=== PATIENT | female | born 1970 ===

== ENCOUNTER 2016-12-25 15:07 | Outpatient (CLI) | payer OTHER | END 2016-12-25 15:08 | disposition home or self-care (01) | LOC: LABHHL 15:07 | PROVIDERS: ATTEND Surgery | DX: N63.20 Unspecified lump in the left breast, unspecified quadrant (principal) | CPT/HCPCS: 88305 ==

== ENCOUNTER 2017-01-09 12:42 | Outpatient (CLI) | payer OTHER ==
--- NOTE | 2017-01-09 14:20 | Ultrasound Report ---
LEFT BREAST ULTRASOUND: 01/09/17 12:42:00 CLINICAL: Left breast mass. Status post recent ultrasound biopsy of an intraductal mass by Dr. Yousif with negative but nonspecific pathology. COMPARISON: 12/25/16 mammogram and OPI 12/01/16 mammogram FINDINGS: Ultrasound of the left breast(including all four quadrants and the retroareolar area) was performed. A biopsy clip is identified within a dilated duct retroareolar at 4 o'clock. The duct wall is thickened at the clip there is no intraductal mass. Several dilated retroareolar ducts are identified. The most prominent is at 4 o'clock subareolar. Measures 6 mm in maximum diameter and contains homogeneous echogenic material. No distinct intraductal mass is identified. However, an oval smooth solid mass versus complex cyst is identified at 3 o'clock 7 cm from the nipple. It measures 1.8 x 1.6 x 1.3 cm and correlates with what was described as a solid mass on a February 2016 OPI mammogram. However, I do not have those images for comparison and I have no previous ultrasound for comparison. In addition, an oval solid hypoechoic subareolar mass at 12 o'clock measures 1.0 x 0.4 x 0.8 cm. IMPRESSION: 1. 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 2. A 1.8 cm solid mass versus complex cyst at 3 o'clock 7 cm from the level. Recommend ultrasound guided aspiration/biopsy to confirm benignity. 3. A probably benign 1 cm subareolar mass at 12 o'clock. BI-RADS 4--Suspicious RECOMMENDATION: Ultrasound biopsy of the mass at 3 o'clock 7 cm from the nipple and short-term followup ultrasound to reevaluate duct ectasia and the 1 cm subareolar mass at 12 o'clock.
== END 2017-01-09 12:43 | disposition home or self-care (01) ==
LOC: SPVWC 12:42
PROVIDERS: ATTEND Surgery
DX: N60.42 Mammary duct ectasia of left breast (principal); N60.32 Fibrosclerosis of left breast

== ENCOUNTER 2017-01-10 15:04 | Outpatient (CLI) | payer OTHER | END 2017-01-10 15:05 | disposition home or self-care (01) | LOC: LABHHL 15:04 | PROVIDERS: ATTEND Surgery | DX: N63.20 Unspecified lump in the left breast, unspecified quadrant (principal); R92.0 Mammographic microcalcification found on diagnostic imaging of breast | CPT/HCPCS: 88305 ==